=== PATIENT | male | born 1990 | race Caucasian/White ===

== ENCOUNTER → 2016-12-02 | Outpatient (CLI) | payer OTHER ==
[~2016-12-02] MED LIST: ADV250INH INH; ALBU17IN INH; CLEO300C2 PO; LORTTAB2 PO; OCEA0.65; PROAAER INH; XYZA5TAB PO; flonase; singulair OR
--- NOTE | 2016-12-02 14:29 | REP ---
Urinary tract sonogram: History: Drop family history of polycystic kidney disease. Comparison: No comparison study. Findings: Scanning at the level of the urinary bladder shows no abnormality. Renal cortical echogenicity pattern is normal bilaterally and contours are smooth. There is no evidence of hydronephrosis, cyst, mass, or calculus in either kidney. The right kidney measures 11.7 x 5.7 x 5.4 cm. Left renal dimensions are 12.3 x 5.0 x 5.6 cm. Impression: Normal urinary tract sonography. Signed by Neil Barrera MD 12/02/2016 02:22 P
== END ==
LOC: M RAD 12:42
PROVIDERS: ATTEND Family Medicine
DX: Q61.3 Polycystic kidney, unspecified (principal)

== ENCOUNTER → 2017-01-27 | Outpatient (CLI) | payer OTHER | LOC: M RAD 07:59 | PROVIDERS: ATTEND Specialist | DX: J32.0 Chronic maxillary sinusitis (principal) ==

== ENCOUNTER 2019-02-22 13:08 | Emergency (ER) | payer OTHER ==
[~2019-02-22] VITALS: Ht 167.6 cm; Wt 112.6 kg
--- NOTE | 2019-02-22 14:25 | REP ---
SOFT-TISSUE NECK X-RAY: Three views. HISTORY: Question of chicken bone. FINDINGS: AP and lateral views of the neck soft tissues demonstrate normal epiglottis. Retropharyngeal soft tissues are not swollen. No opaque foreign body is seen. No glottic or subglottic airway narrowing is observed. IMPRESSION: No opaque foreign body is appreciated. Normal supraglottic and subglottic soft tissues. Electronically Signed by Neil Barrera MD 02/22/2019 08:14 P
--- NOTE | 2019-02-22 16:06 | REP ---
PA chest x-ray: Single view. History: Rule out foreign body. Findings: The lungs are well inflated and clear. There is no evidence of pneumothorax, hydrothorax, atelectasis, or opaque foreign body. No infiltrate is seen. Heart is not enlarged. Pulmonary vasculature is not increased. No bony abnormality is seen. Impression: Negative PA chest x-ray. Electronically Signed by Neil Barrera MD 02/22/2019 03:58 P
--- NOTE | 2019-02-22 16:07 | REP ---
KUB: Single view. History: Rule out foreign body. Findings: Supine view of the abdomen demonstrates a normal bowel gas pattern. Psoas margins and flank stripes are intact. No mass, organomegaly, pathologic calcification, or opaque foreign body is seen. A spina bifida occulta is noted at the L5 level. No other bony findings. Impression: Negative KUB. Electronically Signed by Neil Barrera MD 02/22/2019 03:58 P
[2019-02-22] MEDS ORDERED: GI COCKTAIL 50ML BTL(HYOSCYAMINE/MAALOX/LIDOCAINE VISCOUS)(1:3:1) PO ONE (16:15)
[2019-02-22] MEDS ORDERED: ISOVUE-370 76% 100ML VIAL (Q9967) As Ordered ONE (19:29)
--- NOTE | 2019-02-22 20:43 | REPVR ---
EXAM: CT Neck With Contrast EXAM DATE/TIME: 02/22/2019 7:58 PM CLINICAL HISTORY: 28 years old, male; Throat pain; Additional info: R/O fb TECHNIQUE: Imaging protocol: Axial computed tomography images of the neck with intravenous contrast. Coronal and sagittal reformatted images were created and reviewed. Radiation optimization: All CT scans at this facility use at least one of these dose optimization techniques: automated exposure control; mA and/or kV adjustment per patient size (includes targeted exams where dose is matched to clinical indication); or iterative reconstruction. Contrast material: ISOVUE 370; Contrast volume: 100 ml; Contrast route: IV; COMPARISON: CR Soft Tissue Neck 02/22/2019 1:42 PM FINDINGS: Nasopharynx: Normal. Oropharynx: This small linear density measuring 5 mm is demonstrated in the right tonsillar pillar. Unclear if this represents a radiopaque foreign body or dystrophic calcification (series 202 image 40). Hypopharynx: Normal. Larynx: Normal. Normal epiglottis. Retropharyngeal space: Normal. Submandibular/Parotid glands: Normal. Glands are normal in size. Thyroid: Normal. No enlarged or calcified nodules. Lymph nodes: Normal. No lymphadenopathy. Trachea: Visualized trachea is unremarkable. Lungs: Normal as visualized. Bones/joints: Normal. No acute fracture. Soft tissues: Otherwise unremarkable. IMPRESSION: This small linear density measuring 5 mm is demonstrated in the right tonsillar pillar. Unclear if this represents a radiopaque foreign body or dystrophic calcification. Electronically signed by: Ward Posada On 02/22/2019 20:43:47 PM
[2019-02-22 20:56] VITALS: BP 159/90
[2019-02-22] MEDS ORDERED: CLEO300C2 PO (21:16)
[2019-02-22] MEDS ORDERED: CLINDAMYCIN 150 MG CAP PO ONE (21:30)
== END 2019-02-22 21:32 | disposition home or self-care (01) ==
LOC: M ED 13:08
DX: J03.90 Acute tonsillitis, unspecified (principal); J45.909 Unspecified asthma, uncomplicated; J32.9 Chronic sinusitis, unspecified; Z88.0 Allergy status to penicillin; Z88.1 Allergy status to other antibiotic agents; F17.210 Nicotine dependence, cigarettes, uncomplicated
CPT/HCPCS: 36415; 70360; 70491; 71045; 74018; 80047; 99284; Q9967

== ENCOUNTER → 2020-08-18 | Outpatient (CLI) | payer SELFPAY | LOC: M LABSMTC 10:59 | PROVIDERS: ATTEND Pediatrics | DX: Z20.822 Contact with and (suspected) exposure to COVID-19 (principal) ==

== ENCOUNTER 2020-09-04 19:45 | Emergency (ER) | payer MEDICAID, OTHER, SELFPAY ==
[~2020-09-04] VITALS: Ht 172.7 cm; Wt 111.4 kg
[2020-09-04 20:45] LABS: BASO # 0.1 10^3/uL (0.0-0.2); BASO % 0.6 % (0.0-1.0); EOS # 0.1 10^3/uL (0.0-0.5); EOS % 0.9 % (0.0-3.0); HEMATOCRIT 41.1 % (42.0-52.0); HEMOGLOBIN 14.3 g/dl (13.5-17.5); LYMPH % 10.1 % (24.0-44.0); MEAN CORPUSCULAR HEMOGLOBIN 31.1 pg (27.0-33.0); MEAN CORPUSCULAR HGB CONC 34.8 g/dl (32.0-36.5); MEAN CORPUSCULAR VOLUME 89.3 fl (80.0-96.0); MONO # 0.6 10^3/uL (0.0-0.8); MONO % 5.8 % (0.0-5.0); NEUTROPHILS # 8.4 10^3/uL (1.5-8.5); NEUTROPHILS % 81.8 % (36.0-66.0); PLATELET COUNT, AUTOMATED 277 10^3/uL (150-450); WHITE BLOOD COUNT 10.2 10^3/uL (4.0-10.0)
--- NOTE | 2020-09-04 21:15 | ECGEPIP ---
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
--- NOTE | 2020-09-04 21:19 | REPVR ---
PROCEDURE INFORMATION: Exam: CT Abdomen And Pelvis Without Contrast Exam date and time: 09/04/2020 9:03 PM Age: 30 years old Clinical indication: Abdominal pain; Generalized; Additional info: Robles carlson TECHNIQUE: Imaging protocol: Computed tomography of the abdomen and pelvis without contrast. Radiation optimization: All CT scans at this facility use at least one of these dose optimization techniques: automated exposure control; mA and/or kV adjustment per patient size (includes targeted exams where dose is matched to clinical indication); or iterative reconstruction. COMPARISON: RENAL US 12/02/2016 12:49 PM FINDINGS: Liver: Unremarkable. No mass. Gallbladder and bile ducts: Normal. No calcified stones. No ductal dilation. Pancreas: Unremarkable. No ductal dilation. Spleen: Unremarkable. No splenomegaly. Adrenal glands: Normal. No mass. Kidneys and ureters: 3 mm nonobstructing stone in the right kidney midpole. 4 mm stone in the right proximal ureter resulting in mild right hydroureteronephrosis. Normal left kidney and left ureter. Stomach and bowel: Unremarkable. No obstruction. No mucosal thickening. Appendix: No evidence of appendicitis. Intraperitoneal space: No free air. No significant fluid collection. Vasculature: Unremarkable. No abdominal aortic aneurysm. Lymph nodes: No enlarged lymph nodes. Urinary bladder: Generalized wall thickening of the urinary bladder, likely secondary to under distention. Cystitis is not excluded. Reproductive: Unremarkable as visualized. Bones/joints: No acute fracture. Soft tissues: Unremarkable. IMPRESSION: 1. 4 mm stone in the right proximal ureter resulting in mild right hydroureteronephrosis. 2. Right nephrolithiasis. 3. Generalized wall thickening of the urinary bladder, likely secondary to under distention. Cystitis is not excluded. Electronically signed by: Felix Jackson On 09/04/2020 21:18:59 PM
[2020-09-04 21:24] LABS: BLOOD UREA NITROGEN 7 MG/DL (7-18); CALCIUM LEVEL 9.2 MG/DL (8.5-10.1); CARBON DIOXIDE LEVEL 23 MEQ/L (21-32); CHLORIDE LEVEL 105 MEQ/L (98-107); CREATININE FOR GFR 1.11 MG/DL (0.70-1.30); GLOMERULAR FILTRATION RATE > 60.0 (>60); GLUCOSE, FASTING 101 MG/DL (70-100); POTASSIUM SERUM 4.3 MEQ/L (3.5-5.1); SODIUM LEVEL 136 MEQ/L (136-145)
[2020-09-04] MEDS ORDERED: FLOM0.4C39 PO (21:30)
[2020-09-04] MEDS ORDERED: KETO10TAB PO (21:30)
[2020-09-04] MEDS ORDERED: KETOROLAC 30 MG/ML 1ML VIAL IV ONE (21:30)
[2020-09-04 22:16] VITALS: BP 162/80
[2020-09-04 22:59] LABS: CHLAMYDIA DNA AMPLIFICATION NEGATIVE (NEGATIVE); GC DNA AMPLIFICATION NEGATIVE (NEGATIVE)
== END 2020-09-04 23:03 | disposition home or self-care (01) ==
LOC: M ED 19:45
DX: R55 Syncope and collapse (principal); N20.1 Calculus of ureter; F17.200 Nicotine dependence, unspecified, uncomplicated; Z79.899 Other long term (current) drug therapy; Z88.0 Allergy status to penicillin; Z88.1 Allergy status to other antibiotic agents; Z91.048 Other nonmedicinal substance allergy status
CPT/HCPCS: 74176; 80048; 81001; 85025; 87661; 93005; 93041; 96374; 99284; J1885

== ENCOUNTER 2020-09-06 11:50 | Emergency (ER) | payer MEDICAID, SELFPAY ==
[~2020-09-06] VITALS: Ht 172.7 cm; Wt 112.8 kg
[~2020-09-06 11:50] MED LIST changes: +FLOM0.4C39 PO; +KETO10TAB PO
[2020-09-06] MEDS ORDERED: NS 1,000 ML IV ONE (12:45)
[2020-09-06 12:46] LABS: BASO % 0.2 % (0.0-1.0); EOS # 0.1 10^3/uL (0.0-0.5); EOS % 0.8 % (0.0-3.0); HEMATOCRIT 39.8 % (42.0-52.0); HEMOGLOBIN 14.1 g/dl (13.5-17.5); LYMPH # 1.2 10^3/uL (1.5-5.0); LYMPH % 13.4 % (24.0-44.0); MEAN CORPUSCULAR HEMOGLOBIN 31.4 pg (27.0-33.0); MEAN CORPUSCULAR HGB CONC 35.4 g/dl (32.0-36.5); MEAN CORPUSCULAR VOLUME 88.6 fl (80.0-96.0); MONO # 0.6 10^3/uL (0.0-0.8); MONO % 6.8 % (0.0-5.0); NEUTROPHILS # 6.9 10^3/uL (1.5-8.5); NEUTROPHILS % 78.1 % (36.0-66.0); PLATELET COUNT, AUTOMATED 272 10^3/uL (150-450); RED BLOOD COUNT 4.49 10^6/uL (4.30-6.10); WHITE BLOOD COUNT 8.8 10^3/uL (4.0-10.0)
[2020-09-06] MEDS ORDERED: TAMSULOSIN 0.4 MG CAP PO ONE (13:00)
[2020-09-06] MEDS ORDERED: ONDANSETRON 4MG/2ML VIAL IV ONE (13:00)
[2020-09-06] MEDS ORDERED: KETOROLAC 30 MG/ML 1ML VIAL IV ONE (13:00)
[2020-09-06 14:28] LABS: CHLAMYDIA DNA AMPLIFICATION NEGATIVE (NEGATIVE); GC DNA AMPLIFICATION NEGATIVE (NEGATIVE)
[2020-09-06 15:16] LABS: APPEARANCE, URINE CLEAR (CLEAR); BACTERIA, URINE AUTO NEGATIVE (NEGATIVE); BILIRUBIN, URINE AUTO NEGATIVE (NEGATIVE); BLOOD, URINE BLOOD NEGATIVE (NEGATIVE); COLOR, URINE COLORLESS (YELLOW); GLUCOSE, URINE (UA) AUTO NEGATIVE (NEGATIVE); KETONE, URINE AUTO NEGATIVE (NEGATIVE); LEUKOCYTE ESTERASE, URINE AUTO NEGATIVE (NEGATIVE); NITRITE, URINE AUTO NEGATIVE (NEGATIVE); PROTEIN, URINE AUTO NEGATIVE (NEGATIVE); RBC, URINE AUTO 0 /HPF (0-3); SPECIFIC GRAVITY URINE AUTO 1.002 (1.002-1.035); SQUAMOUS EPITHELIAL CELL UR AU 0 /HPF (0-6); UROBILINOGEN, URINE AUTO 0.2 mg/dL (0.0-2.0); WBC, URINE AUTO 0 /HPF (0-3)
[2020-09-06] MEDS ORDERED: ZOFR4TAB16 PO (15:55)
[2020-09-06 16:05] VITALS: BP 139/90
== END 2020-09-06 16:10 | disposition home or self-care (01) ==
LOC: M ED 11:50
DX: N20.1 Calculus of ureter (principal); J45.909 Unspecified asthma, uncomplicated; J32.9 Chronic sinusitis, unspecified; Z88.0 Allergy status to penicillin; Z88.1 Allergy status to other antibiotic agents; F17.210 Nicotine dependence, cigarettes, uncomplicated
CPT/HCPCS: 80047; 81001; 83605; 85025; 87661; 96361; 96374; 96375; 99284; J1885; J2405

== ENCOUNTER → 2020-09-16 | Outpatient (REF) | payer MEDICAID ==
[~2020-09-16] MED LIST changes: +ZOFR4TAB16 PO
[2020-09-16 17:55] LABS: APPEARANCE, URINE CLEAR (CLEAR); BACTERIA, URINE AUTO NEGATIVE (NEGATIVE); BILIRUBIN, URINE AUTO NEGATIVE (NEGATIVE); BLOOD, URINE BLOOD NEGATIVE (NEGATIVE); COLOR, URINE COLORLESS (YELLOW); GLUCOSE, URINE (UA) AUTO NEGATIVE (NEGATIVE); KETONE, URINE AUTO NEGATIVE (NEGATIVE); LEUKOCYTE ESTERASE, URINE AUTO NEGATIVE (NEGATIVE); NITRITE, URINE AUTO NEGATIVE (NEGATIVE); PROTEIN, URINE AUTO NEGATIVE (NEGATIVE); RBC, URINE AUTO 0 /HPF (0-3); SPECIFIC GRAVITY URINE AUTO 1.002 (1.002-1.035); SQUAMOUS EPITHELIAL CELL UR AU 0 /HPF (0-6); UROBILINOGEN, URINE AUTO 0.2 mg/dL (0.0-2.0); WBC, URINE AUTO 0 /HPF (0-3)
== END ==
LOC: M SMT 17:04
PROVIDERS: ATTEND Nurse Practitioner Family
DX: N20.0 Calculus of kidney (principal)

== ENCOUNTER → 2020-10-05 | Outpatient (CLI) | payer MEDICAID ==
--- NOTE | 2020-10-05 17:03 | REP ---
INDICATION: KIDNEY STONES. COMPARISON: None. TECHNIQUE: Real-time sonographic evaluation of urinary bladder performed. FINDINGS: The bladder measures 14.1 x 10.0 x 9.1 cm, total volume 838 cc. Postvoid residual is 58 cc. This is 7% of the original volume. No bladder wall thickening or mass seen. There is no bladder calculus. Ureteral jets could not be visualized with Doppler color evaluation. IMPRESSION: Essentially unremarkable bladder ultrasound, with mild postvoid residual of 7%. <Electronically signed by Papo Buitrago > 10/05/20 [id number]
--- NOTE | 2020-10-05 17:11 | REP ---
INDICATION: KIDNEY STONES. COMPARISON: None. TECHNIQUE: Real-time sonographic evaluation of the kidneys is performed. FINDINGS: Renal cortical echogenicity pattern is normal bilaterally and contours are smooth. There is no evidence of hydronephrosis, cyst, mass, or calculus in either kidney. The right kidney measures 11.2 x 6.2 x 5.8 cm. Left renal dimensions are 11.7 x 5.1 x 6.2 cm. The urinary bladder is unremarkable. IMPRESSION: Negative renal ultrasound. <Electronically signed by Papo Buitrago > 10/05/20 [id number]
== END ==
LOC: M RAD 12:54
PROVIDERS: ATTEND Nurse Practitioner Family
DX: N20.0 Calculus of kidney (principal)

== ENCOUNTER → 2020-10-12 | Outpatient (REF) | payer MEDICAID ==
[2020-10-12 18:17] LABS: APPEARANCE, URINE CLEAR (CLEAR); BACTERIA, URINE AUTO NEGATIVE (NEGATIVE); BILIRUBIN, URINE AUTO NEGATIVE (NEGATIVE); BLOOD, URINE BLOOD NEGATIVE (NEGATIVE); COLOR, URINE STRAW (YELLOW); GLUCOSE, URINE (UA) AUTO NEGATIVE (NEGATIVE); KETONE, URINE AUTO NEGATIVE (NEGATIVE); LEUKOCYTE ESTERASE, URINE AUTO NEGATIVE (NEGATIVE); NITRITE, URINE AUTO NEGATIVE (NEGATIVE); PROTEIN, URINE AUTO NEGATIVE (NEGATIVE); RBC, URINE AUTO 0 /HPF (0-3); SPECIFIC GRAVITY URINE AUTO 1.006 (1.002-1.035); SQUAMOUS EPITHELIAL CELL UR AU 0 /HPF (0-6); UROBILINOGEN, URINE AUTO 0.2 mg/dL (0.0-2.0); WBC, URINE AUTO 0 /HPF (0-3)
== END ==
LOC: M LABSMT 14:13 → M SFHCADAM 14:15
PROVIDERS: ATTEND Nurse Practitioner Family
DX: N20.0 Calculus of kidney (principal)

== ENCOUNTER → 2020-10-27 | Outpatient (CLI) | payer MEDICAID, OTHER ==
--- NOTE | 2020-10-27 14:54 | REP ---
INDICATION: KIDNEY STONE COMPARISON: 10/05/2020 TECHNIQUE: Real time hood scale ultrasound examination using curved array transducer. FINDINGS: Left kidney is normal in contour, size, echogenicity, and reniform shape without hydronephrosis, nephrolithiasis, cystic or renal mass lesion. Left kidney measures 11.4 x 5.8 x 5.8 cm. Right kidney is normal in contour, size, echogenicity, and reniform shape without hydronephrosis, cystic or renal mass lesion. 3 mm non-obstructing midpole calculus cannot be excluded. Right kidney measures 11.8 x 5.6 x 4.9 cm. IMPRESSION: Possible 3 mm nonobstructing right renal calculus. Otherwise normal renal ultrasound. No hydronephrosis. <Electronically signed by Evangelist Avelar > 10/27/20 [id number]
--- NOTE | 2020-10-27 14:58 | REP ---
INDICATION: KIDNEY STONE COMPARISON: 10/05/2020 TECHNIQUE: Real time B-mode ultrasound examination using curved array transducer. FINDINGS: Bladder is normal in appearance without wall thickening or mass lesion. Bilateral ureteral jets are identified. Prevoid bladder measures 9.5 x 8.6 x 7.1 cm (379 cc) Postvoid bladder measures 3.3 x 4.1 x 2.2 cm (19 cc) Postvoid residual: 5.1% IMPRESSION: 1. Normal bladder ultrasound. <Electronically signed by Evangelist Avelar > 10/27/20 [id number]
== END ==
LOC: M RAD 14:11
PROVIDERS: ATTEND Nurse Practitioner Family
DX: N20.0 Calculus of kidney (principal)

== ENCOUNTER → 2020-11-03 | Outpatient (CLI) | payer OTHER ==
--- NOTE | 2020-11-03 18:06 | REP ---
INDICATION: KIDNEY STONES,CALCULUS OF KIDNEY COMPARISON: Comparison CT study September 04, 2020.. TECHNIQUE: Helical scanning is acquired in 4 mm axial images were reformatted. Coronal and sagittal MPR images were generated and reviewed. 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 The lung bases are clear on axial CT images. The liver and the spleen are normal in size homogeneous in texture. Normal adrenal glands are observed. No abnormality is noted in the pancreas or the gallbladder. No upper abdominal mass or adenopathy is seen. There is an intrarenal calculus at mid pole level in the right kidney. This calculus measures 3 mm in diameter. No hydronephrosis is seen. No intrarenal calculus is visible in the left kidney. No ureteral stone or bladder calculus is seen. There are some dystrophic calcifications in the prostate gland. A normal appendix is seen. Small and large intestinal bowel loops are unremarkable. IMPRESSION: Intrarenal nephrolithiasis again noted right mid kidney with a 3 mm nonobstructing intrarenal calculus. This is unchanged from the September 04, 2020 study. The previously noted right proximal ureteral calculus is no longer apparent. Otherwise negative. <Electronically signed by Demarcus Barrera > 11/03/20 [id number]
== END ==
LOC: M RAD 15:59
PROVIDERS: ATTEND Nurse Practitioner Family
DX: N20.0 Calculus of kidney (principal)

== ENCOUNTER → 2020-11-27 | Outpatient (CLI) | payer OTHER ==
--- NOTE | 2020-11-27 11:01 | REP ---
INDICATION: HERNIA, TESTICULAR PAIN; RT; R/O RT ING HERNIA. COMPARISON: None TECHNIQUE: Transabdominal ultrasonography of the right lower quadrant was obtained along with separate bilateral inguinal ultrasonography FINDINGS: Ultrasonographic evaluation of the right lower quadrant shows no abnormalities. Ultrasonographic evaluation of the inguinal region bilaterally shows no abnormalities. IMPRESSION: 1. Unremarkable right lower quadrant ultrasonography. 2. Unremarkable bilateral inguinal ultrasonography. Ultrasonography cannot rule out an inguinal hernia since they can spontaneously reduce. Accredited by the [employer] in General Ultrasound. <Electronically signed by Juancho Hill > 11/27/20 [id number]
--- NOTE | 2020-11-27 11:06 | REP ---
INDICATION: HERNIA, TESTICULAR PAIN; RT. COMPARISON: None FINDINGS: Ultrasonographic evaluation of the right testicle shows the right testicle to measure 4.5 x 2.5 x 3.2 cm. The parenchymal echo pattern is within normal limits. The vascular pattern is within normal limits. The RI is 0.5. Incidental note is made of a 2.4 cm sized spermatocele. Ultrasonographic evaluation of the left testicle shows the left testicles measure 4.7 x 2.2 x 3.2 cm. The parenchymal echo pattern and vascular pattern are within normal limits. The technologist performing the examination did not obtain an RI. Color Doppler imaging shows a normal vascular pattern. IMPRESSION: Testicular ultrasonography is within normal limits. There is an incidental right-sided spermatocele as described above. <Electronically signed by Juancho Hill > 11/27/20 [id number]
== END ==
LOC: M RAD 09:10
PROVIDERS: ATTEND Nurse Practitioner Family
DX: N50.811 Right testicular pain (principal)

== ENCOUNTER → 2021-01-21 | Outpatient (CLI) | payer SELFPAY | LOC: M LABSMTC 11:12 | PROVIDERS: ATTEND Pediatrics | DX: Z11.52 Encounter for screening for COVID-19 (principal) ==

== ENCOUNTER 2021-03-05 12:46 | Emergency (ER) | payer OTHER, SELFPAY ==
[~2021-03-05] VITALS: Ht 165.1 cm; Wt 109.1 kg
[2021-03-05 15:45] LABS: BASO # 0.1 10^3/uL (0.0-0.2); BASO % 0.6 % (0.0-1.0); EOS # 0.2 10^3/uL (0.0-0.5); EOS % 1.7 % (0.0-3.0); HEMATOCRIT 41.2 % (42.0-52.0); HEMOGLOBIN 14.5 g/dl (13.5-17.5); LYMPH % 19.9 % (24.0-44.0); MEAN CORPUSCULAR HEMOGLOBIN 32.2 pg (27.0-33.0); MEAN CORPUSCULAR HGB CONC 35.2 g/dl (32.0-36.5); MEAN CORPUSCULAR VOLUME 91.4 fl (80.0-96.0); MONO # 0.6 10^3/uL (0.0-0.8); MONO % 6.4 % (2.0-8.0); NEUTROPHILS # 7.1 10^3/uL (1.5-8.5); NEUTROPHILS % 70.7 % (36.0-66.0); PLATELET COUNT, AUTOMATED 269 10^3/uL (150-450); RED BLOOD COUNT 4.51 10^6/uL (4.30-6.10)
[2021-03-05 16:14] LABS: ALBUMIN 4.2 GM/DL (3.2-5.2); ALT/SGPT 29 U/L (12-78); BILIRUBIN,DIRECT 0.2 MG/DL (0.0-0.2); BLOOD UREA NITROGEN 9 MG/DL (7-18); CALCIUM LEVEL 9.3 MG/DL (8.5-10.1); CARBON DIOXIDE LEVEL 25 MEQ/L (21-32); CHLORIDE LEVEL 107 MEQ/L (98-107); CREATININE FOR GFR 0.81 MG/DL (0.70-1.30); GLOMERULAR FILTRATION RATE > 60.0 (>60); GLUCOSE, FASTING 86 MG/DL (70-100); LIPASE 58 U/L (73-393); POTASSIUM SERUM 4.6 MEQ/L (3.5-5.1); SODIUM LEVEL 139 MEQ/L (136-145); TOTAL PROTEIN 7.5 GM/DL (6.4-8.2)
[2021-03-05 16:51] LABS: GC DNA AMPLIFICATION NEGATIVE (NEGATIVE)
[2021-03-05 16:57] VITALS: BP 145/92
== END 2021-03-05 18:13 | disposition home or self-care (01) ==
LOC: M ED 12:46
DX: R10.2 Pelvic and perineal pain (principal); R30.0 Dysuria; J45.909 Unspecified asthma, uncomplicated; Z86.16 Personal history of COVID-19; Z87.442 Personal history of urinary calculi; Z88.0 Allergy status to penicillin; Z88.1 Allergy status to other antibiotic agents; F17.210 Nicotine dependence, cigarettes, uncomplicated

== ENCOUNTER 2021-04-01 08:13 | Emergency (ER) | payer OTHER ==
[~2021-04-01] VITALS: Ht 165.1 cm; Wt 134.4 kg
[2021-04-01] MEDS ORDERED: PHEN-501 (08:25)
[2021-04-01 10:26] LABS: GC DNA AMPLIFICATION NEGATIVE (NEGATIVE)
[2021-04-01] MEDS ORDERED: NS 1,000 ML IV ONE (11:10)
[2021-04-01] MEDS ORDERED: ONDANSETRON 4MG/2ML VIAL IV ONE (11:10)
[2021-04-01] MEDS ORDERED: KETOROLAC 30 MG/ML 1ML VIAL IV ONE (11:10)
[2021-04-01 11:36] LABS: BASO % 0.3 % (0.0-1.0); EOS % 0.3 % (0.0-3.0); HEMATOCRIT 44.6 % (42.0-52.0); HEMOGLOBIN 15.6 g/dl (13.5-17.5); LYMPH # 1.3 10^3/uL (1.5-5.0); LYMPH % 11.3 % (24.0-44.0); MEAN CORPUSCULAR HEMOGLOBIN 31.7 pg (27.0-33.0); MEAN CORPUSCULAR VOLUME 90.7 fl (80.0-96.0); MONO # 0.6 10^3/uL (0.0-0.8); MONO % 4.8 % (2.0-8.0); NEUTROPHILS # 9.7 10^3/uL (1.5-8.5); NEUTROPHILS % 82.6 % (36.0-66.0); PLATELET COUNT, AUTOMATED 316 10^3/uL (150-450); RED BLOOD COUNT 4.92 10^6/uL (4.30-6.10); WHITE BLOOD COUNT 11.7 10^3/uL (4.0-10.0)
[2021-04-01 12:11] LABS: ALBUMIN 4.4 GM/DL (3.2-5.2); BILIRUBIN,DIRECT 0.2 MG/DL (0.0-0.2); BILIRUBIN,TOTAL 0.9 MG/DL (0.2-1.0)
[2021-04-01] MEDS ORDERED: ISOVUE-370 76% 100ML VIAL As Ordered ONE (12:18)
--- NOTE | 2021-04-01 12:53 | REP ---
INDICATION: abd pain. COMPARISON: 11/03/2020 the latest prior noncontrast enhanced examination TECHNIQUE: Standard helical technique after the intravenous administration of 100 cc Isovue 370 FINDINGS: The lung bases are clear and unchanged. The liver, gallbladder, spleen, pancreas, adrenal glands, and left kidney are within normal limits and essentially unchanged. The tiny nonobstructing right nephrolith is again noted. The right kidney is otherwise unremarkable. The abdominal aorta and para-aortic regions are within normal limits. The bowel loops and the mesenteries are within normal limits. There is no mass or adenopathy. There is no free fluid or free air. The osseous structures are stable and intact. IMPRESSION: No acute disease. No significant change other than technique complain compared to the prior exam. Findings as described above. <Electronically signed by Juancho Hill > 04/01/21 [id number]
[2021-04-01] MEDS ORDERED: ONDA4TAB6 PO (14:23)
[2021-04-01] MEDS ORDERED: CIPR-249 PO (14:23)
[2021-04-01 14:32] VITALS: BP 153/89
== END 2021-04-01 14:40 | disposition home or self-care (01) ==
LOC: M ED 08:13
DX: N39.0 Urinary tract infection, site not specified (principal); J45.909 Unspecified asthma, uncomplicated; F17.210 Nicotine dependence, cigarettes, uncomplicated; Z79.899 Other long term (current) drug therapy; Z88.0 Allergy status to penicillin; Z88.8 Allergy status to other drugs, medicaments and biological substances; Z91.048 Other nonmedicinal substance allergy status; Z87.442 Personal history of urinary calculi; Z84.1 Family history of disorders of kidney and ureter
CPT/HCPCS: 74177; 80047; 80076; 81001; 83690; 85025; 87086; 87661; 96374; 96375; 99284; J1885; J2405; Q9967

== ENCOUNTER → 2022-08-24 | Outpatient (CLI) | payer OTHER ==
[~2022-08-24] MED LIST changes: +CIPR-249 PO; +ONDA4TAB6 PO; +PHEN-501
[2022-08-24 13:24] LABS: BASO # 0.1 10^3/uL (0.0-0.2); EOS # 0.4 10^3/uL (0.0-0.5); EOS % 3.8 % (0.0-3.0); HEMATOCRIT 45.4 % (42.0-52.0); HEMOGLOBIN 15.4 g/dl (13.5-17.5); LYMPH # 2.4 10^3/uL (1.5-5.0); LYMPH % 23.2 % (24.0-44.0); MEAN CORPUSCULAR HGB CONC 33.9 g/dl (32.0-36.5); MEAN CORPUSCULAR VOLUME 91.5 fl (80.0-96.0); MONO # 0.8 10^3/uL (0.0-0.8); MONO % 7.4 % (2.0-8.0); NEUTROPHILS # 6.7 10^3/uL (1.5-8.5); NEUTROPHILS % 63.6 % (36.0-66.0); PLATELET COUNT, AUTOMATED 301 10^3/uL (150-450); RED BLOOD COUNT 4.96 10^6/uL (4.30-6.10); WHITE BLOOD COUNT 10.5 10^3/uL (4.0-10.0)
[2022-08-24 13:54] LABS: HEMOGLOBIN A1c 5.1 % (4.0-6.0)
[2022-08-24 13:57] LABS: THYROID STIMULATING HORMONE 3.331 uIU/ML (0.55-4.78)
[2022-08-24 14:00] LABS: ALBUMIN 3.8 G/DL (3.2-5.2); ALKALINE PHOSPHATASE 78 U/L (46-116); ALT/SGPT 39 U/L (7.0-40); AST/SGOT 24 U/L (<34); BILIRUBIN,TOTAL 0.4 MG/DL (0.3-1.2); BLOOD UREA NITROGEN 10 MG/DL (9-23); CALCIUM LEVEL 9.1 MG/DL (8.5-10.1); CARBON DIOXIDE LEVEL 26 MMOL/L (20-31); CHLORIDE LEVEL 102 MMOL/L (98-107); CHOLESTEROL LEVEL 162 MG/DL (<200); CHOLESTEROL RISK RATIO 4.95 (<5); CREATININE FOR GFR 0.93 MG/DL (0.70-1.30); GLOMERULAR FILTRATION RATE > 60.0 (>60); GLUCOSE, FASTING 84 MG/DL (60-100); HDL CHOLESTEROL 32.7 MG/DL (>40); LDL CHOLESTEROL 84.1 MG/DL (<100); NON-HDL-C 129 MG/DL; POTASSIUM SERUM 5.1 MMOL/L (3.5-5.1); SODIUM LEVEL 135 MMOL/L (136-145); TOTAL PROTEIN 6.7 G/DL (5.7-8.2); TRIGLYCERIDES LEVEL 226 MG/DL (<150)
== END ==
LOC: M LABDRWAD 08:50
PROVIDERS: ATTEND Nurse Practitioner Family
DX: E66.3 Overweight (principal); J45.998 Other asthma

== ENCOUNTER → 2025-02-18 | Outpatient (CLI) | payer OTHER ==
[~2025-02-18] MED LIST changes: -FLOM0.4C39 PO; +ONDA-282 PO; -ONDA4TAB6 PO; +TAMS-18 PO
== END ==
LOC: M SOG 12:19
PROVIDERS: ATTEND Orthopaedic Surgery
DX: S82.844A Nondisplaced bimalleolar fracture of right lower leg, initial encounter for closed fracture (principal); W18.30XA Fall on same level, unspecified, initial encounter; Y92.009 Unspecified place in unspecified non-institutional (private) residence as the place of occurrence of the external cause

== ENCOUNTER → 2025-02-25 | Outpatient (CLI) | payer OTHER | LOC: M SOG 07:26 | PROVIDERS: ATTEND Orthopaedic Surgery | DX: S82.844A Nondisplaced bimalleolar fracture of right lower leg, initial encounter for closed fracture (principal); W18.30XA Fall on same level, unspecified, initial encounter; Y92.009 Unspecified place in unspecified non-institutional (private) residence as the place of occurrence of the external cause ==

== ENCOUNTER → 2025-03-13 | Outpatient (CLI) | payer OTHER | LOC: M SOG 06:50 | PROVIDERS: ATTEND Orthopaedic Surgery | DX: S82.844D Nondisplaced bimalleolar fracture of right lower leg, subsequent encounter for closed fracture with routine healing (principal); Z53.9 Procedure and treatment not carried out, unspecified reason ==

== ENCOUNTER → 2025-03-19 | Outpatient (CLI) | payer OTHER | LOC: M SOG 06:53 | PROVIDERS: ATTEND Orthopaedic Surgery | DX: S82.844D Nondisplaced bimalleolar fracture of right lower leg, subsequent encounter for closed fracture with routine healing (principal) ==

== ENCOUNTER → 2025-05-13 | Outpatient (CLI) | payer OTHER | LOC: M SOG 07:22 | PROVIDERS: ATTEND Orthopaedic Surgery | DX: S82.844D Nondisplaced bimalleolar fracture of right lower leg, subsequent encounter for closed fracture with routine healing (principal); W18.30XD Fall on same level, unspecified, subsequent encounter ==

== ENCOUNTER → 2025-07-14 | Outpatient (CLI) | payer OTHER | LOC: M SOG 07:46 | PROVIDERS: ATTEND Orthopaedic Surgery | DX: S82.84 Bimalleolar fracture of lower leg (principal) ==

== ENCOUNTER → 2025-07-24 | Outpatient (CLI) | payer OTHER | LOC: M SOG 07:38 | PROVIDERS: ATTEND Orthopaedic Surgery | DX: S82.84 Bimalleolar fracture of lower leg (principal); Z53.9 Procedure and treatment not carried out, unspecified reason ==

== ENCOUNTER → 2025-07-28 | Outpatient (CLI) | payer OTHER | LOC: M SOG 07:44 | PROVIDERS: ATTEND Orthopaedic Surgery | DX: S82.84 Bimalleolar fracture of lower leg (principal) ==

== ENCOUNTER → 2025-08-11 | Outpatient (CLI) | payer OTHER | LOC: M SOG 07:38 | PROVIDERS: ATTEND Orthopaedic Surgery | DX: S82.84 Bimalleolar fracture of lower leg (principal); Z53.9 Procedure and treatment not carried out, unspecified reason ==